=== PATIENT | female | born 2000 | race American Indian/Alaskan Native ===

== ENCOUNTER 2019-06-13 16:14 | Emergency (ER) | payer SELFPAY ==
--- NOTE | 2019-06-13 16:56 | Emergency Department Report ---
Blank Doc - Documentation Documentation: 18-year-old female that presents with vaginal abscess. This initial assessment/diagnostic orders/clinical plan/treatment(s) is/are subject to change based on patient's health status, clinical progression and re- assessment by fellow clinical providers in the ED. Further treatment and workup at subsequent clinical providers discretion. Patient/guardians urged not to elope from the ED as their condition may be serious if not clinically assessed and managed. Initial orders include: 1- Patient sent to [facility] for further evaluation and treatment
[2019-06-13 16:57] VITALS: BP 114/65
--- NOTE | 2019-06-13 19:42 | Emergency Department Report ---
Abscess Boil HPI - HPI Chief Complaint: Skin/Abscess/Foreign Body Stated Complaint: BOIL ON VAGINAL Time Seen by Provider: 06/13/19 16:55 Duration: 1 Day Location: Perianal Severity: Moderate History: Yes Pain, Yes Purulent Drainage, No Fever, No Numbness, No Foreign Bod y, No Previous History, No Insect Bite HPI: This is a 18-year-old -Ch[place] female who presents to the emergency room with a painful abscess to her right labia 1 day. Patient reports mild drainage, pain that is worse with sitting. She denies fever, chills, pelvic p ain, vaginal discharge, urinary frequency, urgency, or dysuria. Home Medications: Previous Rx's Medication Instructions Recorded Last Taken Type Ibuprofen [Motrin 800 MG tab] 800 mg PO Q8HR PRN #20 tablet 06/13/19 Unknown Rx Sulfamethoxazole/Trimethoprim 1 each PO BID #14 tablet 06/13/19 Unknown Rx [Bactrim DS TAB] Allergies/Adverse Reactions: Allergies Allergy/AdvReac Type Severity Reaction Status Date / Time No Known Allergies Allergy Unverified 06/13/19 16:19 ED Review of Systems ROS: Stated complaint: BOIL ON VAGINAL Other details as noted in HPI Constitutional: denies: chills, fever Respiratory: denies: cough, shortness of breath, wheezing Cardiovascular: denies: chest pain, palpitations Gastrointestinal: denies: abdominal pain, nausea, diarrhea Genitourinary: denies: urgency, dysuria, discharge Skin: lesions (painful abscess to right labia). denies: rash Neurological: denies: headache, weakness, paresthesias Psychiatric: denies: anxiety, depression ED Past Medical Hx - Past Medical History Previous Medical History?: No - Surgical History Past Surgical History?: No - Social History Smoking Status: Never Smoker Substance Use Type: None - Medications Home Medications: Home Medications Medication Instructions Recorded Confirmed Last Taken Type Ibuprofen [Motrin 800 MG tab] 800 mg PO Q8HR PRN #20 tablet 06/13/19 Unknown Rx Sulfamethoxazole/Trimethoprim 1 each PO BID #14 tablet 06/13/19 Unknown Rx [Bactrim DS TAB] ED Abscess Boil Physical Exam - Exam General: Vital signs noted. No distress. Alert and acting appropriately. Front/Back of Body, Lg (Color): 1 - Half a centimeter nonfluctance painful nodule right labia majora, tenderne ss, malodorous discharge Size: 1 cm Exam: Yes Tenderness, Yes Normal Neurologic Exam, Yes Normal Circulation, No Fluctuance, No Surrounding Cellulites/Erythema, No Lymphangitis, No Crepitation, No Heart Murmur ED Course Vital Signs 06/13/19 16:56 Temperature 98.3 F Pulse Rate 100 H Respiratory 18 Rate Blood Pressure 114/65 O2 Sat by Pulse 99 Oximetry Critical care attestation.: If time is entered above; I have spent that time in minutes in the direct care of this critically ill patient, excluding procedure time. ED Medical Decision Making - Medical Decision Making This is a 18-year-old female who presents with painful abscess to her right labia 1 day. Patient was examined by me. Vitals are stable and in no acute distress. No labs ordered. The abscess appear to the be a bartholin abscess that is currently draining and nonfluctant. I&D is not indicated at this time. Start bactrim DS and ibuprofen. Discharged home in stable condition. F/U with gynecology for PCP 2-3 days. ED Disposition Clinical Impression: Abscess of Bartholin's gland Disposition: TO HOME OR SELFCARE Is pt being admited?: No Condition: Stable Instructions: Bartholin Cyst (ED) Additional Instructions: Complete full round of bactrim DS antibiotic as prescribed. Follow up with marine diver or a primary care doctor in 2-3 days for r eevaluation.. Return to ER if foul smelling discharge, swelling, or severe pain to wound. Prescriptions: Sulfamethoxazole/Trimethoprim [Bactrim DS TAB] 1 each PO BID #14 tablet Ibuprofen [Motrin 800 MG tab] 800 mg PO Q8HR PRN #20 tablet PRN Reason: Pain , Severe (7-10) Referrals: [facility] [Provider Group] - 3-5 Days [facility] [Provider Group] - 3-5 Days [facility] [Provider Group] - 3-5 Days [facility] [Outside] - 3-5 Days Time of Disposition: :48
== END 2019-06-13 20:13 | disposition home or self-care (01) ==
LOC: ED 16:14
DX: N75.1 Abscess of Bartholin's gland (principal)

== ENCOUNTER 2019-08-01 09:58 | Emergency (ER) | payer SELFPAY ==
--- NOTE | 2019-08-01 12:58 | Emergency Department Report ---
ED Female HPI - General Chief complaint: Abdominal Pain Stated complaint: ABD APIN, CRAMPS Time Seen by Provider: 08/01/19 12:29 Source: patient Mode of arrival: Ambulatory Limitations: No Limitations - History of Present Illness Initial comments: This is a 18-year-old -Iranian female who presents with sharp pelvic pain for 1 week. Patient states she had a positive test 2 days ago. Her last menstrual period was June 27, 2019, G1, P0. She denies nausea, vomiting, hematuria, vaginal bleeding, urinary frequency, urgency, dysuria, vaginal discharge, fever, or chills. MD Complaint: pelvic pain Onset/Timin -: week(s) Location: suprapubic Radiation: non-radiating Severity: mild Severity scale (0 -10): 3 Quality: sharp Consistency: intermittent Improves with: none Worsens with: none Are you Now?: Yes Last Menstrual Period: 06/27/19 EDC: 04/02/20 Associated Symptoms: denies other symptoms - Related Data Sexually active: Yes : 1 Para: 0 A: 0 Previous Rx's Medication Instructions Recorded Last Taken Type Ibuprofen [Motrin 800 MG tab] 800 mg PO Q8HR PRN #20 tablet 06/13/19 Unknown Rx Sulfamethoxazole/Trimethoprim 1 each PO BID #14 tablet 06/13/19 Unknown Rx [Bactrim DS TAB] 21/Iron Fu/Folic Acid 1 each PO DAILY #30 tablet 08/01/19 Unknown Rx [ Complete Caplet] Allergies Allergy/AdvReac Type Severity Reaction Status Date / Time No Known Allergies Allergy Unverified 06/13/19 16:19 ED Review of Systems ROS: Stated complaint: ABD APIN, CRAMPS Other details as noted in HPI Constitutional: denies: chills, fever Respiratory: denies: cough, shortness of breath, wheezing Cardiovascular: denies: chest pain, palpitations Gastrointestinal: abdominal pain. denies: nausea, diarrhea Genitourinary: denies: urgency, dysuria, discharge Musculoskeletal: denies: back pain, joint swelling, arthralgia Skin: denies: rash, lesions Neurological: denies: headache, weakness, paresthesias Psychiatric: denies: anxiety, depression ED Past Medical Hx - Past Medical History Previous Medical History?: No - Surgical History Past Surgical History?: No - Social History Smoking Status: Never Smoker Substance Use Type: None - Medications Home Medications: Home Medications Medication Instructions Recorded Confirmed Last Taken Type Ibuprofen [Motrin 800 MG tab] 800 mg PO Q8HR PRN #20 tablet 06/13/19 Unknown Rx Sulfamethoxazole/Trimethoprim 1 each PO BID #14 tablet 06/13/19 Unknown Rx [Bactrim DS TAB] 21/Iron Fu/Folic Acid 1 each PO DAILY #30 tablet 08/01/19 Unknown Rx [ Complete Caplet] ED Physical Exam - General Limitations: No Limitations General appearance: alert, in no apparent distress - Respiratory Respiratory exam: Present: normal lung sounds bilaterally. Absent: respiratory distress - Cardiovascular Cardiovascular Exam: Present: regular rate, normal rhythm. Absent: systolic murmur, diastolic murmur, rubs, gallop - GI/Abdominal GI/Abdominal exam: Present: soft, tenderness (Suprapubic), normal bowel sounds. Absent: distended, guarding, rebound, rigid - Extremities Exam Extremities exam: Present: normal inspection - Back Exam Back exam: Absent: CVA tenderness (R), CVA tenderness (L) - Neurological Exam Neurological exam: Present: alert, oriented X3, normal gait - Psychiatric Psychiatric exam: Present: normal affect, normal mood - Skin Skin exam: Present: warm, dry, intact, normal color. Absent: rash ED Course Vital Signs 08/01/19 08/01/19 10:09 15:03 Temperature 99.1 F Pulse Rate 117 H 69 Respiratory 16 16 Rate Blood Pressure 131/67 105/68 O2 Sat by Pulse 98 91 Oximetry ED Medical Decision Making - Lab Data Lab Results 08/01/19 08/01/19 08/01/19 Range/Units 13:02 13:02 13:22 HCG, Qual Positive (Negative) HCG, Quant 2760 H (0-4) mIU/mL Urine Color Yellow (Yellow) Urine Turbidity Hazy (Clear) Urine pH 7.0 (5.0-7.0) Ur Specific [place] 1.015 (1.003-1.030) Urine Protein <15 mg/dl (Negative) mg/dL Urine Glucose (UA) Neg (Negative) mg/dL Urine Ketones Neg (Negative) mg/dL Urine Blood Neg (Negative) Urine Nitrite Neg (Negative) Urine Bilirubin Neg (Negative) Urine Urobilinogen < 2.0 (<2.0) mg/dL Ur Leukocyte Esterase Tr (Negative) Urine WBC (Auto) 1.0 (0.0-6.0) /HPF Urine RBC (Auto) 3.0 (0.0-6.0) /HPF U Epithel Cells (Auto) 7.0 (0-13.0) /HPF Urine Mucus Few /HPF - Radiology Data Radiology results: report reviewed US OB <= 14 weeks fetus, US OB transvaginal INDICATION / CLINICAL INFORMATION: pelvic pain, gest. COMPARISON: None available. FINDINGS: A tiny gestational sac is demonstrated within the uterus, measuring 5.8 mm, corresponding to a gestational age of 5 weeks 2 days. There appears to be a yolk sac within this gestational sac, but a pole cannot be identified at this very early stage. Very small (4 mm) area of decreased echogenicity adjacent to the gestational sac probably represents a minimal subchorionic hemorrhage. Right ovary is normal. Left ovary contains a 1 cm complex cyst. No significant free fluid. IMPRESSION: 1. 5 week 2 day intrauterine gestational sac. No pole is identified at this very early stage. Suggest reexamination in approximately one week. 2. Tiny (4 mm) subchorionic hemorrhage adjacent to the gestational sac. - Medical Decision Making This is a 18-year-old female that presents with 1 week of pelvic pain. Vitals are stable and patient in no acute distress. Mild suprapubic tenderness on exam. Denies vaginal discharge, hematuria, or UTI symptoms. Pelvic exam deferred at this time. Work-up: Urinalysis, urine test, hCG quant, and OB ultrasound. Urinalysis unremarkable, hCG quant 2760, and OB ultrasound findings of 5 week 2 day intrauterine gestational sac. No pole is identified at this very early stage. Suggest reexamination in approximately one week. 2. Tiny (4 mm) subchorionic hemorrhage adjacent to the gestational sac. Referral to [facility] for continued care. Instructed to have repeat labs in 2 days to rule out threatened miscarriage. Start vitamins. Patient discharged home stable with strict return instructions. Critical care attestation.: If time is entered above; I have spent that time in minutes in the direct care of this critically ill patient, excluding procedure time. ED Disposition Clinical Impression: Threatened miscarriage in early Pelvic pain affecting Qualifiers: Trimester: first trimester Qualified Code(s): O26.891 - Other specified related conditions, first trimester Disposition: DC-01 TO HOME OR SELFCARE Is pt being admited?: No Condition: Stable Instructions: Threatened Miscarriage (ED), (ED), Abdominal Pain (ED) Additional Instructions: Your hCG quant on today's visit was 2760. You will need to have repeat hormone levels in 2 days with an [facility] or return to the emergency room. Start taking vitamins daily. Follow-up with an [facility] from the list provided below. Return to the emergency room if you experience worsening abdominal pain, vaginal bleeding, or back pain. Prescriptions: 21/Iron Fu/Folic Acid [ Complete Caplet] 1 each PO DAILY #30 tablet Referrals: DANIEL ALANIZ MD [Staff Physician] - 3-5 Days [facility] [Provider Group] - 3-5 Days [facility] [Provider Group] - 3-5 Days [facility] [Provider Group] - 3-5 Days Forms: Work/School Release Form(ED) Time of Disposition: 14:38
[2019-08-01 13:46] LABS: Bilirubin,Urine NEG (Negative); Blood,Urine NEG (Negative); Color,Urine Yellow (Yellow); Mucus,Urine FEW /HPF; Protein,Urine <15 mg/dL mg/dL (Negative); Urobilinogen,Urine < 2.0 mg/dL (<2.0)
--- NOTE | 2019-08-01 14:01 | Ultrasound Report ---
US OB <= 14 weeks fetus, US OB transvaginal INDICATION / CLINICAL INFORMATION: pelvic pain, gest. COMPARISON: None available. FINDINGS: A tiny gestational sac is demonstrated within the uterus, measuring 5.8 mm, corresponding to a gestat ional age of 5 weeks 2 days. There appears to be a yolk sac within this gestational sac, but a pole cannot be identified at this very early stage. Very small (4 mm) area of decreased echogenicity adjacent to the gestational sac probably represents a minimal subchorionic hemorrhage. Right ovary is normal. Left ovary contains a 1 cm complex cyst. No significant free fluid. IMPRESSION: 1. 5 week 2 day intrauterine gestational sac. No pole is identified at this very early stage. S uggest reexamination in approximately one week. 2. Tiny (4 mm) subchorionic hemorrhage adjacent to the gestational sac. Signer Name: Jaden Lee MD Signed: 08/01/2019 1:57 PM Workstation Name: [id number]
[2019-08-01 15:08] VITALS: BP 105/68
== END 2019-08-01 15:14 | disposition home or self-care (01) ==
LOC: ED 12:29
DX: O20.0 Threatened abortion (principal); Z79.899 Other long term (current) drug therapy; Z3A.01 Less than 8 weeks gestation of pregnancy
CPT/HCPCS: 36415; 76801; 76817; 81001; 84702; 84703

== ENCOUNTER 2019-09-13 16:47 | Emergency (ER) | payer MEDICAID ==
--- NOTE | 2019-09-13 17:24 | Emergency Department Report ---
Blank Doc - Documentation Documentation: 18-year-old female that presets with vaginal bleeding and pelvic pain. Pt is 11 weeks . This initial assessment/diagnostic orders/clinical plan/treatment(s) is/are subject to change based on patient's health status, clinical progression and re- assessment by fellow clinical providers in the ED. Further treatment and workup at subsequent clinical providers discretion. Patient/guardians urged not to elope from the ED as their condition may be serious if not clinically assessed and managed. Initial orders include: 1- Patient sent to [facility] for further evaluation and treatment 2- labs 3 OB US
[2019-09-13 17:25] VITALS: BP 112/65
[2019-09-13 17:56] LABS: Bacteria,Urine 1+ /HPF (Negative); Bilirubin,Urine NEG (Negative); Blood,Urine MOD (Negative); Color,Urine Yellow (Yellow); Mucus,Urine 3+ /HPF
[2019-09-13 18:21] LABS: Basophils % (Auto) 0.3 % (0.0-1.8); Eosinophils # (Auto) 0.2 K/mm3 (0.0-0.4); Eosinophils % (Auto) 1.7 % (0.0-4.3); Hematocrit 36.3 % (30.3-42.9); Hemoglobin 12.3 gm/dl (10.1-14.3); Lymphocytes % (Auto) 19.2 % (13.4-35.0); Mean Corpuscular HGB Conc 34 % (30-34); Mean Corpuscular Volume 87 fl (79-97); Monocytes # (Auto) 0.4 K/mm3 (0.0-0.8); Monocytes % (Auto) 4.1 % (0.0-7.3); Platelet Count 302 K/mm3 (140-440); Red Cell Distribution Width 14.3 % (13.2-15.2)
--- NOTE | 2019-09-13 18:30 | Ultrasound Report ---
US OB <= 14 weeks fetus INDICATION / CLINICAL INFORMATION: vaginal bleeding. COMPARISON: 08/01/2019 FINDINGS: Single, viable intrauterine . heart rate 166. Placenta is anterior, with a small (1.2 cm x 2.6 cm x 0.75 cm) subchorionic hemorrhage, located immed iately to the right of the gestational sac. A similar finding was demonstrated on the previous exam, measuring only 4 mm at that time. [place]-rump length measures 4.41 cm, corresponding to a gestational age of 11 weeks 2 days. Left ovary appears unremarkable. Right ovary cannot be identified. No free fluid. IMPRESSION: 1. Viable, 11 week 2 day intrauterine . 2. Small subchorionic hemorrhage, increased in size since 08/01/2019. Suggest continued follow-up. Signer Name: Jaden Lee MD Signed: 09/13/2019 6:25 PM Workstation Name: [id number]
--- NOTE | 2019-09-13 21:26 | Emergency Department Report ---
ED Female HPI - General Chief complaint: Vaginal Bleeding Stated complaint: 11 WKS /BLEEDING/PAIN Time Seen by Provider: 09/13/19 17:23 Source: patient Mode of arrival: Ambulatory Limitations: No Limitations - History of Present Illness Initial comments: This is a 18-year-old female who presents the ED at approximately 11 weeks complaining of vaginal bleeding x3 days. Patient states bleeding started as light and today was a bit heavier so she came into the ED to be evaluated. She states last menstrual period as June 27, 2019. Patient states she received care at [facility] and has an appointment on Wednesday. Patient denies abdominal pain pelvic cramping, fever, chills, dysuria or any other problems. Patient noted that she did have sex prior to bleeding onset. MD Complaint: vaginal bleeding - Related Data Previous Rx's Medication Instructions Recorded Last Taken Type Ibuprofen [Motrin 800 MG tab] 800 mg PO Q8HR PRN #20 tablet 06/13/19 Unknown Rx Sulfamethoxazole/Trimethoprim 1 each PO BID #14 tablet 06/13/19 Unknown Rx [Bactrim DS TAB] 21/Iron Fu/Folic Acid 1 each PO DAILY #30 tablet 08/01/19 Unknown Rx [ Complete Caplet] Allergies Allergy/AdvReac Type Severity Reaction Status Date / Time No Known Allergies Allergy Unverified 06/13/19 16:19 ED Review of Systems ROS: Stated complaint: 11 WKS /BLEEDING/PAIN Other details as noted in HPI Comment: All other systems reviewed and negative ED Past Medical Hx - Social History Smoking Status: Never Smoker - Medications Home Medications: Home Medications Medication Instructions Recorded Confirmed Last Taken Type Ibuprofen [Motrin 800 MG tab] 800 mg PO Q8HR PRN #20 tablet 06/13/19 Unknown Rx Sulfamethoxazole/Trimethoprim 1 each PO BID #14 tablet 06/13/19 Unknown Rx [Bactrim DS TAB] 21/Iron Fu/Folic Acid 1 each PO DAILY #30 tablet 08/01/19 Unknown Rx [ Complete Caplet] ED Physical Exam - General Limitations: No Limitations General appearance: alert, in no apparent distress - Head Head exam: Present: atraumatic, normocephalic - Eye Eye exam: Present: normal appearance - ENT ENT exam: Present: mucous membranes moist - Neck Neck exam: Present: normal inspection - Respiratory Respiratory exam: Present: normal lung sounds bilaterally. Absent: respiratory distress - Cardiovascular Cardiovascular Exam: Present: regular rate, normal rhythm. Absent: systolic murmur, diastolic murmur, rubs, gallop - GI/Abdominal GI/Abdominal exam: Present: soft, normal bowel sounds - Extremities Exam Extremities exam: Present: normal inspection - Back Exam Back exam: Present: normal inspection - Neurological Exam Neurological exam: Present: alert, oriented X3 - Psychiatric Psychiatric exam: Present: normal affect, normal mood - Skin Skin exam: Present: warm, dry, intact, normal color. Absent: rash ED Course Vital Signs 09/13/19 16:52 Temperature 98.6 F Pulse Rate 74 Respiratory 18 Rate Blood Pressure 112/65 O2 Sat by Pulse 100 Oximetry ED Medical Decision Making - Lab Data Result diagrams: 09/13/19 18: Laboratory Last Values WBC 10.6 K/mm3 (4.5-11.0) 09/13/19 18: RBC 4.20 M/mm3 (3.65-5.03) 09/13/19 18: Hgb 12.3 gm/dl (10.1-14.3) 09/13/19 18: Hct 36.3 % (30.3-42.9) 09/13/19 18: MCV 87 fl (79-97) 09/13/19 18: MCH 29 pg (28-32) 09/13/19 18: MCHC 34 % (30-34) 09/13/19 18: RDW 14.3 % (13.2-15.2) 09/13/19 18: Plt Count 302 K/mm3 (140-440) 09/13/19 18: Lymph % (Auto) 19.2 % (13.4-35.0) 09/13/19 18: [place] % (Auto) 4.1 % (0.0-7.3) 09/13/19 18: Eos % (Auto) 1.7 % (0.0-4.3) 09/13/19 18: Baso % (Auto) 0.3 % (0.0-1.8) 09/13/19 18: Lymph # 2.0 K/mm3 (1.2-5.4) 09/13/19 18: [place] # 0.4 K/mm3 (0.0-0.8) 09/13/19 18:02 Eos # 0.2 K/mm3 (0.0-0.4) 09/13/19 18:02 Baso # 0.0 K/mm3 (0.0-0.1) 09/13/19 18:02 Seg Neutrophils % 74.7 % (40.0-70.0) H 09/13/19 18:02 Seg Neutrophils # 7.9 K/mm3 (1.8-7.7) H 09/13/19 18:02 HCG, Quant [id number] mIU/mL (0-4) H 09/13/19 18:02 Urine Color Yellow (Yellow) 09/13/19 17:36 Urine Turbidity Slightly-cloudy (Clear) 09/13/19 17:36 Urine pH 6.0 (5.0-7.0) 09/13/19 17:36 Ur Specific [place] 1.024 (1.003-1.030) 09/13/19 17:36 Urine Protein 30 mg/dl mg/dL (Negative) 09/13/19 17:36 Urine Glucose (UA) Neg mg/dL (Negative) 09/13/19 17:36 Urine Ketones 20 mg/dL (Negative) 09/13/19 17:36 Urine Blood Mod (Negative) 09/13/19 17:36 Urine Nitrite Neg (Negative) 09/13/19 17:36 Urine Bilirubin Neg (Negative) 09/13/19 17:36 Urine Urobilinogen 4.0 mg/dL (<2.0) 09/13/19 17:36 Ur Leukocyte Esterase Neg (Negative) 09/13/19 17:36 Urine WBC (Auto) 3.0 /HPF (0.0-6.0) 09/13/19 17:36 Urine RBC (Auto) 4.0 /HPF (0.0-6.0) 09/13/19 17:36 U Epithel Cells (Auto) 7.0 /HPF (0-13.0) 09/13/19 17:36 Urine Bacteria (Auto) 1+ /HPF (Negative) 09/13/19 17:36 Urine Mucus 3+ /HPF 09/13/19 17:36 Blood Type O POSITIVE 09/13/19 18:02 - Radiology Data Radiology results: report reviewed, image reviewed US OB <= 14 weeks fetus INDICATION / CLINICAL INFORMATION: vaginal bleeding. COMPARISON: 08/01/2019 FINDINGS: Single, viable intrauterine . heart rate 166. Placenta is anterior, with a small (1.2 cm x 2.6 cm x 0.75 cm) subchorionic hemorrhage, located immediately to the right of the gestational sac. A similar finding was demonstrated on the previous exam, measuring only 4 mm at that time. [place]-rump length measures 4.41 cm, corresponding to a gestational age of 11 weeks 2 days. Left ovary appears unremarkable. Right ovary cannot be identified. No free fluid. IMPRESSION: 1. Viable, 11 week 2 day intrauterine . 2. Small subchorionic hemorrhage, increased in size since 08/01/2019. Suggest continued follow-up. Signer Name: Jaden Lee MD Signed: 09/13/2019 6:25 PM Workstation Name: [id number] Transcribed By: TM Dictated By: Jaden Lee MD Electronically Authenticated By: Jaden Lee MD Signed Date/Time: 09/13/191824 - Medical Decision Making 18-year-old female presents to ED with vaginal bleeding and most likely secondary to a small subchronic hemorrhage ED course: Pt received ultra sound, CBC, urinalysis, test and quantitative ED All labs within normal limits, Patient is followed by an MATERIALS RESEARCH ENGINEER and [facility] Patient states he has a follow-up with primary on Wednesday in 2 days Ultrasound shows single uterine at 11 weeks 2 days. See reported above Vital signs normalized patient is in no acute distress. I discussed with the patient if follow-up with her MATERIALS RESEARCH ENGINEER. I discussed all labs and ultrasound findings with the patient. I discussed with the patient that he if bleeding worsens or new symptoms develop to return to ED immediately Critical care attestation.: If time is entered above; I have spent that time in minutes in the direct care of this critically ill patient, excluding procedure time. ED Disposition Clinical Impression: Subchorionic hemorrhage in first trimester, Vaginal bleeding during Disposition: - TO HOME OR SELFCARE Is pt being admited?: No Does the pt Need Aspirin: No Condition: Stable Instructions: (ED), Threatened Miscarriage (ED) Additional Instructions: Make sure to follow up with t your MATERIALS RESEARCH ENGINEER [facility] as discussed. Avoid intercourse until f otherwise advised by your obgyn If you have any worsening symptoms or develop new symptoms please return to ED immediately. Referrals: PRIMARY CARE, [Primary Care Provider] - 3-5 Days [facility] [Provider Group] - 3-5 Days Forms: Work/School Release Form(ED) Time of Disposition: 21:25
== END 2019-09-13 21:34 | disposition home or self-care (01) ==
LOC: ED 16:47
DX: O46.8X1 Other antepartum hemorrhage, first trimester (principal); Z3A.11 11 weeks gestation of pregnancy
CPT/HCPCS: 36415; 76801; 81001; 84702; 85025; 86900; 86901

== ENCOUNTER 2020-03-12 20:11 | Inpatient (IN) | payer MEDICAID ==
[2020-03-12] MEDS ORDERED: LIDOCAINE (2%) 20 MG/1 ML VIAL 20 ML MDV INFILTRATI ONE (21:56)
[2020-03-12] MEDS ORDERED: ePHEDrine SULFATE 50 MG/1 ML INJ IV PRN (21:56)
[2020-03-12] MEDS ORDERED: TERBUTALINE 1 MG/1 ML INJ SUB-Q PRN (21:56)
[2020-03-12] MEDS ORDERED: MINERAL OIL 30 ML ORAL LIQD PO PRN (21:56)
[2020-03-12] MEDS ORDERED: ACETAMINOPHEN 325 MG TAB PO PRN (21:56)
[2020-03-12] MEDS ORDERED: DINOPROSTONE 10 MG VAG SUPP VG ONE (22:00)
[2020-03-12] MEDS ORDERED: ZOLPIDEM 5 MG TAB PO PRN (22:04)
[2020-03-12] MEDS: LACTATED RINGERS 1,000 ML IV SCH (22:32)
[2020-03-12 23:06] LABS: Hematocrit 28.4 % (30.3-42.9); Hemoglobin 8.8 gm/dl (10.1-14.3); Mean Corpuscular HGB Conc 31 % (30-34); Mean Corpuscular Volume 92 fl (79-97); Platelet Count 273 K/mm3 (140-440)
[2020-03-12 23:30] LABS: Red Cell Distribution Width 27.7 % (13.2-15.2)
[2020-03-13] MEDS: LACTATED RINGERS 1,000 ML IV SCH ×4 (01:46→18:54)
[2020-03-13] MEDS: fentaNYL 100 MCG/2 ML INJ IV PRN ×3 (03:23→17:18)
[2020-03-13] MEDS ORDERED: LIDOCAINE JELLY (2%) 5 ML TOPICAL TP PRN (07:47)
--- NOTE | 2020-03-13 07:53 | History and Physical Report ---
History of Present Illness Date of examination: 03/13/20 Date of admission: 03/12/20 20:11 Chief complaint: Here for induction of labor History of present illness: Pt is a 19 yo at 37w1d EGA who presents for induction of labor secondary to growth restriction. She reports positive movement, contractions since placement of Cervidil, and denies LOF or vaginal bleeding. She also reports pain and oozing from Bartholin cyst. She has had care with [facility]. Her has been complicated by growth restriction, iron-deficiency anemia, mildly dilated bowel, recurrent Bartholin cyst, and EIF. She is GBS negative. 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 (recurrent Bartholin cyst) Social history: no significant social history - Obstetrical History Expected Date of Delivery: 04/02/20 Actual Gestation: 37 Week(s) 1 Day(s) : 1 Para: 0 Medications and Allergies Allergies Allergy/AdvReac Type Severity Reaction Status Date / Time No Known Allergies Allergy Unverified 06/13/19 16:19 Home Medications Medication Instructions Recorded Confirmed Last Taken Type Ibuprofen [Motrin 800 MG tab] 800 mg PO Q8HR PRN #20 tablet 06/13/19 03/13/20 Unknown Rx Sulfamethoxazole/Trimethoprim 1 each PO BID #14 tablet 06/13/19 03/13/20 Unknown Rx [Bactrim DS TAB] 21/Iron Fu/Folic Acid 1 each PO DAILY #30 tablet 08/01/19 03/13/20 Unknown Rx [ Complete Caplet] Active Meds: Active Medications Acetaminophen (Tylenol) 650 mg PO Q4H PRN PRN Reason: Pain, Mild (1-3) Ephedrine Sulfate (Ephedrine Sulfate) 10 mg IV Q2M PRN PRN Reason: Hypotension Fentanyl (Sublimaze) 100 mcg IV Q2H PRN PRN Reason: Labor Pain Last Admin: 03/13/20 03:23 Dose: 100 mcg Documented by: Lactated Ringer's (Lactated Ringers) 1,000 mls @ 125 mls/hr IV DIRECT BIBI Last Admin: 03/13/20 04:28 Dose: 300 mls/hr Documented by: Oxytocin/Sodium Chloride (Pitocin/Ns 20 Unit/1000ml Drip) 20 units in 1,000 mls @ 125 mls/hr IV DIRECT BIBI Mineral Oil (Mineral Oil) 30 ml PO QHS PRN PRN Reason: Constipation Terbutaline Sulfate (Brethine) 0.25 mg SUB-Q ONCE PRN PRN Reason: Hyperstimulation/Hypertonicity Zolpidem Tartrate (Ambien) 5 mg PO QHS PRN PRN Reason: Sleep Last Admin: 03/12/20 22:41 Dose: 5 mg Documented by: Review of Systems All systems: negative Genitourinary: contractions (cramping), other (Bartholin cyst), no vaginal bleeding, no leakage of fluid - Vital Signs Vital signs: Vital Signs Temp Pulse Resp BP Pulse Ox 98.3 F 94 H 12 108/65 99 03/12/20 20:39 03/12/20 20:39 03/12/20 20:39 03/12/20 20:39 03/12/20 20:39 Temp Pulse Resp BP Pulse Ox 98.3 F 85 12 108/65 98 03/12/20 20:39 03/13/20 06:58 03/12/20 20:39 03/12/20 20:47 03/13/20 06:58 - Physical Exam Lungs: Positive: Normal air movement Abdomen: Positive: soft. Negative: distention Genitourinary (Female): Positive: other (left Bartholin cyst, draining) - Obstetrical FHR: category 1 Uterine Contraction Monitor Mode: External Uterine Contraction Pattern: Irregular Results Result Diagrams: 03/12/20 21:00 Abnormal lab results 03/12/20 Range/Units 21:00 RBC 3.10 L (3.65-5.03) M/mm3 Hgb 8.8 L (10.1-14.3) gm/dl Hct 28.4 L (30.3-42.9) % RDW 27.7 H (13.2-15.2) % All other labs normal. Assessment and Plan A: 19 yo at 37w1d EGA growth restriction Iron-deficiency naemia Recurrent Bartholin cyst Mildly dilated bowel EIF GBS negative, membranes intact P: Admit to L&D Cervical ripening- Cervidil Lidocaine gel for vulvar pain Anticipate
[2020-03-13] MEDS ORDERED: FERROUS SULFATE 325 MG TAB PO SCH (10:00)
[2020-03-13] MEDS ORDERED: OXYTOCIN DRIP 30 UNITS/500 ML BAG IV SCH (12:00)
--- NOTE | 2020-03-13 17:04 | Event Note ---
Date: 03/13/20 AROM clear fluid at 1700, FHT reassuring throughout. SVE now /-2. Pitocin titration.
[2020-03-13] MEDS: OXYTOCIN 20 UNIT/1000ML DRIP 20 UNITS/1,000 ML BAG IV SCH ×2 (20:36→21:41)
[2020-03-13] MEDS ORDERED: ePHEDrine SULFATE 50 MG/1 ML INJ IV PRN (20:39)
[2020-03-13] MEDS ORDERED: NALOXONE 2 MG/2 ML INJ IV PRN (20:39)
[2020-03-13] MEDS ORDERED: DEXMEDETOMIDINE 200 MCG/2 ML VIAL IV ONE (20:44)
--- NOTE | 2020-03-13 20:44 | Procedure Note ---
OB Delivery Note - Delivery Date of Delivery: 03/13/20 Surgeon: SHERLYN ALLEN Estimated blood loss: 100cc - Vaginal Delivery presentation: vertex Delivery position: OA Intrapartum events: precipitous labor- <3hr Delivery monitor: external FHT, external uterine Route of delivery: Delivery placenta: spontaneous Delivery cord: 3 umbilical vessels Episiotomy: none Delivery laceration: none Anesthesia: none - Infant A at 1 minute: 8 at 5 minutes: 9 Gender: Female (weight 5lbs 2oz)
[2020-03-13] MEDS ORDERED: ACETAMINOPHEN 325 MG TAB PO PRN (20:46)
[2020-03-13] MEDS ORDERED: PROMETHAZINE 25 MG TAB PO PRN (20:46)
[2020-03-13] MEDS ORDERED: WITCH HAZEL/ GLYCERIN PAD TP PRN (20:46)
[2020-03-13] MEDS ORDERED: PROMETHAZINE 25 MG RECT SUPP PR PRN (20:46)
[2020-03-13] MEDS ORDERED: HYDROcodone/ACETAMINOPHEN 5-325 MG TAB PO PRN (20:46)
[2020-03-13] MEDS ORDERED: ONDANSETRON 4 MG/2 ML INJ IV PRN (20:46)
[2020-03-13] MEDS ORDERED: MAGNESIUM HYDROXIDE (MOM) ORAL LIQD UDC PO PRN (20:46)
[2020-03-13] MEDS ORDERED: diphenhydrAMINE 25 MG CAP PO PRN (20:46)
[2020-03-13] MEDS ORDERED: LANOLIN/ZINC/DIMETHICONE (LANSINOH) 7 GM TP PRN (20:46)
--- NOTE | 2020-03-13 20:50 | Anesthesia Consultation ---
Anesthesia Consult and Med Hx Date of service: 03/13/20 - Airway Anesthetic Teeth Evaluation: Good ROM Head & Neck: Adequate Mental/Hyoid Distance: Adequate Mallampati Class: Class II Intubation Access Assessment: Probably Good - Pulmonary Exam CTA: Yes - Cardiac Exam Cardiac Exam: RRR - Pre-Operative Health Status ASA Pre-Surgery Classification: ASA2 Proposed Anesthetic Plan: Epidural - Pulmonary Hx Smoking: No Hx Asthma: No Hx Respiratory Symptoms: No SOB: No COPD: No Home Oxygen Therapy: No Hx Pneumonia: No Hx Sleep Apnea: No - Cardiovascular System Hx Hypertension: No Hx Coronary Artery Disease: No Hx Heart Attack/AMI: No Hx Angina: No Hx Percutaneous Transluminal Coronary Angioplasty (PTCA): No Hx Cardia Arrhythmia: No Hx Pacemaker: No Hx Internal Defibrillator: No Hx Valvular Heart Disease: No Hx Heart Murmur: No Hx Peripheral Vascular Disease: No - Central Nervous System Hx Neuromuscular Disorder: No Hx Seizures: No CVA: No Hx Back Pain: No Hx Psychiatric Problems: No - Endocrine Hx Renal Disease: No Hx Hypothyroidism: No Hx Hyperthyroidism: No - Hematic Hx Anemia: Yes Hx Sickle Cell Disease: No - Other Systems Hx Alcohol Use: No
[2020-03-13] MEDS ORDERED: fentaNYL-BUPIV 2 MCG/ML-0.125% 200 MCG/100 ML BAG EPIDURAL SCH (21:00)
[2020-03-14] MEDS: IBUPROFEN 600 MG TAB PO SCH ×3 (04:16→21:11)
--- NOTE | 2020-03-14 08:36 | Progress Note ---
Assessment and Plan A: PPD1 s/p Vital signs stable Chronic anemia due to . Awaiting pp H&H Needs assistance with breast feeding P: Routine pp care consult Ferrous sulfate supplementation Subjective - Subjective Date of service: 03/14/20 Principal diagnosis: s/p Interval history: PPD1 s/p Patient reports: appetite normal, voiding normally, pain well controlled, ambulating normally [place]: doing well, bottle feeding (needs assistance with breast feeding) Objective - Vital Signs Latest vital signs: Vital Signs Temp Pulse Resp BP BP Pulse Ox 03/14/20 04:20 98.6 F 88 18 104/68 98 03/14/20 00:15 99.6 F 60 18 116/74 99 03/13/20 21:26 63 130/80 03/13/20 20:42 78 123/77 03/13/20 20:16 120 H 99 03/13/20 20:11 76 99 03/13/20 20:06 100 H 100 03/13/20 19:15 98.3 F 76 18 124/75 03/13/20 19:14 76 124/75 03/13/20 17:18 18 03/13/20 10:06 85 98 03/13/20 10:01 91 H 97 03/13/20 09:56 87 98 03/13/20 09:51 99 H 97 03/13/20 09:46 93 H 98 03/13/20 09:41 79 97 03/13/20 09:36 82 98 03/13/20 09:31 87 98 03/13/20 09:26 105 H 97 03/13/20 09:21 84 97 03/13/20 09:16 79 97 03/13/20 09:11 79 98 03/13/20 09:06 88 99 03/13/20 09:01 115 H 98 03/13/20 08:56 93 H 97 03/13/20 08:51 97 H 96 03/13/20 08:47 99 H 94 03/13/20 08:46 95 H 96 03/13/20 08:41 80 99 03/13/20 08:36 109 H 99 Intake and Output 03/13/20 03/14/20 03/14/20 23:59 07:59 15:59 Intake Total 2002 240 Output Total 800 Balance 2002 - Intake: IV 2003 Lactated Ringers 1,000 ml 1000 @ 125 mls/hr IV DIRECT BIBI Rx#:[id number] PITOCin/NS 20 UNIT/1000ML 1000 DRIP 20 units In 1,000 ml @ 125 mls/hr IV DIRECT BIBI Rx#:[id number] PITOCin/NS 30 UNIT/500ML 3 30 units In 500 ml @ 2 MILLIUNITS/MIN 2 mls/hr IV TITR BIBI Rx#:[id number] Oral 240 Output: Urine 800 Void 800 Other: Total, Intake Amount 240 Total, Output Amount 800 # Voids Void 1 Estimated Blood Loss 100 - Exam Lungs: Present: Normal air movement Abdomen: Present: soft. Absent: distention Uterus: Present: firm, fundal height below umbilicus. Absent: bogginess Extremities: Present: normal
[2020-03-14 08:45] LABS: Hematocrit 26.1 % (30.3-42.9); Hemoglobin 8.7 gm/dl (10.1-14.3)
[2020-03-14] MEDS: FERROUS SULFATE 325 MG TAB PO SCH ×2 (09:15→21:11)
--- NOTE | 2020-03-14 17:26 | Discharge Summary ---
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 [CONS] Routine Reason For Exam: Primary care physician: SHERLYN ALLEN Hospitalization Reason for admission: induction of labor (FGR), IUP at term Delivery: Episiotomy: none Laceration: none Other procedures: none complications: none Discharge diagnosis: IUP at term delivered Condition at discharge: Good Disposition: DC-01 TO HOME OR SELFCARE Plan - Discharge Medications Prescriptions: Ferrous Sulfate [Feosol 325 MG tab] 325 mg PO BID #60 tablet Ibuprofen [Motrin 600 MG tab] 600 mg PO Q6H #60 tablet - Provider Discharge Summary Activity: routine, no sex for 6 weeks, no heavy lifting 4 weeks, no strenuous exercise Diet: routine Instructions: routine Additional instructions: [] Smoking cessation referral if applicable(refer to patient education folder for contact #) [] Refer to [facility] Booklet Call your doctor immediately for: * Fever > 100.5 * Heavy vaginal bleeding ( >1 pad per hour) * Severe persistent headache * Shortness of breath * Reddened, hot, painful area to leg or breast * Drainage or odor from incision. * Keep incision clean and dry at all times and follow doctor's instructions regarding bathing/showering - Follow up plan Follow up: [employer] [Advanced Practice Nurse] - 14 Days (Please call [facility] to schedule appointment.)
[2020-03-15] MEDS: IBUPROFEN 600 MG TAB PO SCH (04:54)
[2020-03-15] MEDS: FERROUS SULFATE 325 MG TAB PO SCH (10:17)
[2020-03-15 12:49] VITALS: BP 99/53
== END 2020-03-15 14:10 | disposition home or self-care (01) | DRG 775 ==
LOC: LD 20:11 → OB 03-14 00:31
PROVIDERS: ADMIT Obstetrics & Gynecology; ATTEND Obstetrics & Gynecology
PROC: 3E0P7VZ Introduction of Hormone into Female Reproductive, Via Natural or Artificial Opening (ICD-10-PCS; principal; 2020-03-13)
PROC: 10E0XZZ Delivery of Products of Conception, External Approach (ICD-10-PCS; 2020-03-13)
DX: O36.5930 Maternal care for other known or suspected poor fetal growth, third trimester, not applicable or unspecified (principal); Z3A.37 37 weeks gestation of pregnancy; D50.9 Iron deficiency anemia, unspecified; Z37.0 Single live birth; Z20.828 Contact with and (suspected) exposure to other viral communicable diseases; O99.02 Anemia complicating childbirth; O62.3 Precipitate labor
CPT/HCPCS: 36415; 59200; 85014; 85018; 85027; 86592; 86850; 86900; 86901; G0378; J2590; J3010; J3490; J7120; U0003-CS

== ENCOUNTER 2020-04-17 08:00 | Day surgery (SDC) | payer MEDICAID ==
--- NOTE | 2020-04-17 07:48 | Short Stay Summary ---
Short Stay Documentation Date of service: 04/17/20 Narrative H&P: 19y/o with a history of a persistent left bartholin cyst. She has undergone incision and drainage of the cyst multiple times during her . The cyst failed to resolve after placement of a Word catheter. - History Principal diagnosis: Bartholin cyst Past Medical History: No medical history Past Surgical History: No surgical history Social history: single - Allergies and Medications Current Medications: Allergies No Known Allergies Allergy (Unverified 04/17/20 07:05) Home Medications Medication Instructions Recorded Confirmed Last Taken Type No Known Home Medications [No 04/17/20 04/17/20 Unknown History Reported Home Medications] - Physical exam General appearance: no acute distress Integumentary: no rash HEENT: Atraumatic Lungs: Clear to auscultation Breasts: deferred Heart: Regular rate Gastrointestinal: normal Female Genitourinary: deferred Rectal Exam: deferred - Brief post op/procedure progress note Date of procedure: 04/17/20 Pre-op diagnosis: Bartholin gland cyst Post-op diagnosis: same Procedure: Excision of Bartholin gland cyst Anesthesia: GETA Surgeon: SHERLYN ALLEN Estimated blood loss: 50-100ml Pathology: list (Bartholin gland cyst) Specimen disposition: to lab Condition: stable - Hospital course Hospital course: The patient admitted the day of surgery for Bartholin gland cyst excision. Please see operative note for details of surgery. Her postoperative course was uneventful. - Disposition Condition at discharge: Good Disposition: DC-01 TO HOME OR SELFCARE - Discharge Diagnoses (1) Bartholin gland cyst Status: Acute Short Stay Discharge Plan Activity: other (Pelvic rest for 2-4 weeks) Diet: regular Additional Instructions: Schedule follow-up with Dr. Allen in 2 weeks Prescriptions: Ibuprofen [Motrin] 800 mg PO Q8HR PRN #30 tablet PRN Reason: Pain , Severe (7-10) HYDROcodone/APAP 5-325 [[place] 5/325] 1 each PO Q6HR PRN #20 tablet PRN Reason: Pain
[~2020-04-17 08:00] MED LIST: ceFAZolin/Water 2 GM/20 ML 2 GM/20 ML SYRINGE IV NR
[2020-04-17] MEDS ORDERED: ONDANSETRON 4 MG/2 ML INJ IV PRN (08:20)
[2020-04-17] MEDS ORDERED: HYDROmorphone 1 MG/1 ML INJ IV PRN (08:20)
--- NOTE | 2020-04-17 08:42 | Anesthesia Consultation ---
Anesthesia Consult and Med Hx Date of service: 04/17/20 - Airway Anesthetic Teeth Evaluation: Good ROM Head & Neck: Adequate Mental/Hyoid Distance: Adequate Mallampati Class: Class II Intubation Access Assessment: Probably Good - Pulmonary Exam CTA: Yes - Cardiac Exam Cardiac Exam: RRR - Pre-Operative Health Status ASA Pre-Surgery Classification: ASA2 Proposed Anesthetic Plan: General - Pulmonary Hx Smoking: No Hx Respiratory Symptoms: No Hx Sleep Apnea: No - Cardiovascular System Hx Hypertension: No Hx Heart Attack/AMI: No - Central Nervous System CVA: No - Endocrine Hx Renal Disease: No Hx Liver Disease: No Hx Insulin Dependent Diabetes: No Hx Non-Insulin Dependent Diabetes: No Hx Thyroid Disease: No Hx Hypothyroidism: No Hx Hyperthyroidism: No - Hematic Hx Anemia: Yes - Other Systems Hx Obesity: No - Additional Comments Anesthesia Medical History Comments: No prior GA. No FHx anesthetic complications.
--- NOTE | 2020-04-17 08:43 | Anesthesia Day of Surgery ---
Anesthesia Day of Surgery - Day of Surgery Patient Examined: Yes Patient H&P Reviewed: Yes Patient is NPO: Yes
[2020-04-17] MEDS ORDERED: LACTATED RINGERS 1,000 ML IV SCH (09:00)
[2020-04-17] MEDS ORDERED: MIDAZOLAM 2 MG/2 ML INJ IV NR (09:00)
[2020-04-17] MEDS ORDERED: SCOPOLAMINE TRANSDERMAL PATCH 72 HR TD NR (09:00)
[2020-04-17] MEDS ORDERED: LIDOCAINE MPF (2%) 20 MG/1 ML VIAL 5 ML ONE (09:27)
[2020-04-17] MEDS ORDERED: fentaNYL 100 MCG/2 ML INJ ONE (09:28)
[2020-04-17] MEDS ORDERED: propofoL 200 MG/20 ML VIAL IV ONE (09:28)
[2020-04-17] MEDS ORDERED: LIDOCAINE 1%/EPINEPHRINE 1:100,000 VIAL (20 ML) INFILTRATI ONE ×2 (10:05→10:39)
[2020-04-17] MEDS ORDERED: SODIUM CHLORIDE 0.9% IRR 1,500 ML BOTTLE IR ONE (10:39)
[2020-04-17] MEDS ORDERED: ONDANSETRON 4 MG/2 ML INJ ONE (11:00)
--- NOTE | 2020-04-17 11:18 | Operative Report ---
Operative Report Operative Report: Date of procedure: April 17, 2020 Pre-operative diagnosis: Bartholin gland cyst Post-operative diagnosis: Same as above Procedure name(s): Excision of Bartholin gland cyst Surgeon: Yareli Recio M.D. Estimated blood loss: 100 mL Anesthesia: General endotracheal anesthesia Findings A left Bartholin gland cyst with active drainage involving the left vulva Pathology: Bartholin gland cyst Indication: 19-year-old -0-0-1 with a history of persistent left Bartholin gland cyst. The patient has undergone multiple incision and drainage and placement of a Word catheter without resolution of her symptoms. Procedure The patient was taken to the operating room and given general tracheal anesthesia without complication. The patient was prepped and draped in a normal sterile fashion. The surgical site was injected with lidocaine and epinephrine. The vulvar tissue was grasped and incision was created over the vaginal mucosa involving the gland cyst. The Metzenbaum scissors were used in order to dissect the cyst from the surrounding connective tissue. Once the cyst was excised the defect in the labia was reapproximated with 3-0 Vicryl in a running locked fashion. Surgicel was placed in the incision for hemostasis. The skin was then reapproximated with 3-0 Vicryl in a subcuticular fashion.
[2020-04-17] MEDS ORDERED: HYDROcodone/ACETAMINOPHEN 5-325 MG TAB ONE (11:42)
[2020-04-17] MEDS ORDERED: HYDROcodone/ACETAMINOPHEN 5-325 MG TAB PO PRN (12:00)
--- NOTE | 2020-04-17 14:43 | Post Anesthesia Evaluation ---
- Post Anesthesia Evaluation Patient Participated: Yes Airway Patent: Yes Stable Respiratory Function: Yes Nausea/Vomiting: No Temp > 96.8F: Yes Pain Manageable: Yes Adequeate Hydration: Yes Anesthesia Complications: No
[2020-04-17 18:55] VITALS: BP 122/88
== END 2020-04-17 08:01 | disposition home or self-care (01) ==
LOC: OR 08:00
PROVIDERS: ATTEND Obstetrics & Gynecology
DX: N75.0 Cyst of Bartholin's gland (principal); D64.9 Anemia, unspecified; Z79.899 Other long term (current) drug therapy; Z98.890 Other specified postprocedural states
CPT/HCPCS: 56740; 81025; 88304; J0690; J2250; J2405; J2704; J3010; J7120